=== PATIENT | female | born 1990 | race Caucasian/White ===

== ENCOUNTER 2019-11-10 17:03 | Emergency (ER) | payer OTHER ==
[2019-11-10 17:32] LABS: BASOPHILS % (AUTO) 0.6 %; RED CELL DISTRIBUTION WIDTH 11.9 % (12.0-15.0)
[2019-11-10 17:35] LABS: EOSINOPHILS % (AUTO) 12.3 %; HGB - HEMOGLOBIN 12.6 g/dL (12.0-16.0); LYMPHOCYTES % (AUTO) 27.3 %; MEAN CORPUSCULAR HEMOGLOBIN 30.6 pg (27.0-31.0); MEAN CORPUSCULAR HGB CONC 35.4 g/dL (32.0-36.0); MEAN CORPUSCULAR VOLUME 86.4 fL (81.0-99.0); MEAN PLATELET VOLUME 9.6 fL (7.9-10.8); MONOCYTES % (AUTO) 8.4 %; NEUTROPHILS % (AUTO) 51.1 %; PLT - PLATELET COUNT 295 10^3/uL (130-450); RED BLOOD COUNT 4.12 10^6/uL (4.20-5.40); WHITE BLOOD COUNT 9.5 x10^3/uL (4.8-10.8)
[2019-11-10 17:39] LABS: ABNORMAL LYMPHS % (MANUAL) 0 %; BAND NEUTROPHILS % (MANUAL) 0 %
--- NOTE | 2019-11-10 17:44 | ED Physician Documentation ---
History of Present Illness - Stated complaint Stated Complaint: ABD PX/PREG - Chief complaint Chief Complaint: Abd Pain - History obtained from History obtained from: Patient - History of Present Illness Timing: Today Pain level max: 5 Pain level now: 0 - Additonal information Additional information: 28-year-old female, 1 para 0 estimates that she is approximately 8 weeks . She states today while at work she developed right lower quadrant/right pelvic pain. This is been intermittent. She states that it became more severe so she came to get evaluated. No vaginal bleeding or discharge. Nothing makes it better or worse. Currently does not have any pain. Review of Systems Constitutional: denies: Fever, Chills Cardiac: denies: Chest pain / pressure Respiratory: denies: Cough GI: denies: Vomiting, Diarrhea : denies: Dysuria, Frequency, Hesitancy, Discharge, Vaginal bleeding Skin: denies: Rash Musculoskeletal: denies: Neck pain, Back pain Neurologic: denies: Headache PD PAST MEDICAL HISTORY - Past Medical History Past Medical History: No - Past Surgical History Past Surgical History: No - Present Medications Home Medications: Ambulatory Orders Medication Instructions Recorded Confirmed Albuterol Sulfate [Albuterol 8.5 gm 11/10/19 Sulfate Hfa] Cephalexin [Keflex] 500 mg PO Q6H #12 capsule 11/10/19 Fluticasone [Flonase] 1 sprays DEVIN DAILY 11/10/19 11/10/19 Fluticasone/Salmeterol [Advair 1 each 11/10/19 100-50 Diskus] Loratadine [Claritin] 10 mg PO 11/10/19 - Allergies Allergies/Adverse Reactions: Allergies Allergy/AdvReac Type Severity Reaction Status Date / Time No Known Drug Allergies Allergy Verified 11/10/19 17:09 - Social History Does the pt smoke?: No Smoking Status: Never smoker Does the pt drink ETOH?: No Does the pt have substance abuse?: No - Immunizations Immunizations are current?: Yes PD ED PE NORMAL - Vitals Vital signs reviewed: Yes - General General: Alert and oriented X 3, No acute distress, Well developed/nourished - HEENT HEENT: Moist mucous membranes - Neck Neck: Supple, no meningeal sign - Cardiac Cardiac: RRR, Strong equal pulses - Respiratory Respiratory: No respiratory distress, Clear bilaterally - Abdomen Abdomen: Soft, Non tender, Non distended - Female Female : Pt declined - Back Back: No CVA TTP, No spinal TTP - Derm Derm: Warm and dry - Extremities Extremities: No edema - Neuro Neuro: Alert and oriented X 3 - Psych Psych: Normal mood, Normal affect Results - Vitals Vitals: Vital Signs - 24 hr 11/10/19 11/10/19 11/10/19 17:05 17:09 19:09 Temperature 36.8 C 36.8 C Heart Rate 86 82 80 Respiratory 18 16 16 Rate Blood Pressure 112/77 115/75 122/65 O2 Saturation 99 99 99 11/10/19 11/10/19 19:44 19:45 Temperature 36.6 C Heart Rate 74 65 Respiratory 20 16 Rate Blood Pressure 116/73 115/74 O2 Saturation 99 100 Oxygen O2 Source Room air - Labs Labs: Laboratory Tests 11/10/19 11/10/19 11/10/19 17:25 17:25 17:25 WBC 9.5 RBC 4.12 L Hgb 12.6 Hct 35.6 L MCV 86.4 MCH 30.6 MCHC 35.4 RDW 11.9 L Plt Count 295 MPV 9.6 Neut # (Auto) Not Reportable Lymph # (Auto) Not Reportable Greene # (Auto) Not Reportable Eos # (Auto) Not Reportable Baso # (Auto) Not Reportable Absolute Nucleated RBC Not Reportable Total Counted 100 Band Neuts % (Manual) 0 Abnorm Lymph % (Manual) 0 Nucleated RBC % Not Reportable Neutrophils # (Manual) 4.9 Lymphocytes # (Manual) 3.1 Monocytes # (Manual) 0.5 Eosinophils # (Manual) 1.0 H Basophils # (Manual) 0.0 Differential Comment MANUAL DIFFERENTIAL Platelet Estimate NORMAL (130-450,000) Platelet Morphology NORMAL APPEARANCE RBC Morph Micro Appear NORMAL APPEARANCE Sodium 134 L Potassium 3.5 Chloride 100 L Carbon Dioxide 24 Anion Gap 10.0 BUN 8 Creatinine 0.5 Estimated GFR (MDRD) 146 Glucose 90 Calcium 9.1 Total Bilirubin 0.8 AST 19 ALT 16 Alkaline Phosphatase 52 Total Protein 7.9 Albumin 4.8 Globulin 3.1 Albumin/Globulin Ratio 1.5 Lipase 29 HCG, Quant 880317.00 Urine Color Urine Clarity Urine pH Ur Specific [place] Urine Protein Urine Glucose (UA) Urine Ketones Urine Occult Blood Urine Nitrite Urine Bilirubin Urine Urobilinogen Ur Leukocyte Esterase Urine RBC Urine WBC Ur Squamous Epith Cells Urine Bacteria Ur Microscopic Review Urine Culture Comments 11/10/19 17:41 WBC RBC Hgb Hct MCV MCH MCHC RDW Plt Count MPV Neut # (Auto) Lymph # (Auto) Greene # (Auto) Eos # (Auto) Baso # (Auto) Absolute Nucleated RBC Total Counted Band Neuts % (Manual) Abnorm Lymph % (Manual) Nucleated RBC % Neutrophils # (Manual) Lymphocytes # (Manual) Monocytes # (Manual) Eosinophils # (Manual) Basophils # (Manual) Differential Comment Platelet Estimate Platelet Morphology RBC Morph Micro Appear Sodium Potassium Chloride Carbon Dioxide Anion Gap BUN Creatinine Estimated GFR (MDRD) Glucose Calcium Total Bilirubin AST ALT Alkaline Phosphatase Total Protein Albumin Globulin Albumin/Globulin Ratio Lipase HCG, Quant Urine Color YELLOW Urine Clarity CLEAR Urine pH 7.5 Ur Specific [place] 1.015 Urine Protein NEGATIVE Urine Glucose (UA) NEGATIVE Urine Ketones TRACE Urine Occult Blood NEGATIVE Urine Nitrite NEGATIVE Urine Bilirubin NEGATIVE Urine Urobilinogen 2 H Ur Leukocyte Esterase SMALL H Urine RBC 0-5 Urine WBC 4-5 Ur Squamous Epith Cells MOD Squamous H Urine Bacteria Few Ur Microscopic Review INDICATED Urine Culture Comments NOT INDICATED - Rads (name of study) Pelvic ultrasound Radiology: Prelim report reviewed, EMP read contemporaneously, See rad report (IUP, estimated gestational age of 7 weeks and 2 days. Left paraovarian cyst) PD MEDICAL DECISION MAKING - ED course Complexity details: reviewed results, re-evaluated patient, considered differential, d/w patient ED course: Patient with an intrauterine . No evidence of ectopic. Possible UTI will place on antibiotics for this. Asymptomatic here. No evidence of torsion. Patient is well-appearing, nontoxic. Afebrile. No evidence of appendicitis. Patient counseled regarding signs and symptoms for which I believe and urgent re-evaluation would be necessary. Patient with good understanding of and agreement to plan and is comfortable going home at this time This document was made in part using voice recognition software. While efforts are made to proofread this document, sound alike and grammatical errors may occur. Departure - Departure Disposition: 01 Home, Self Care Clinical Impression: Abdominal pain affecting UTI (urinary tract infection) Qualifiers: Urinary tract infection type: acute cystitis Hematuria presence: without hematuria Qualified Code(s): N30.00 - Acute cystitis without hematuria Condition: Good Instructions: ED UTI Cystitis Female, ED Preg Established Normal Sxs Follow-Up: Rick Mares ARNP [Primary Care Provider] - Within 1 week Prescriptions: Cephalexin [Keflex] 500 mg PO Q6H #12 capsule Comments: Take all antibiotics until gone. Return if you worsen. You appear to be approximately 7 weeks and 2 days along, your estimated date of delivery is 06/26/2020. Discharge Date/Time: 11/10/19 19:46
[2019-11-10 17:46] LABS: ALBUMIN 4.8 g/dL (3.2-5.5); ALBUMIN/GLOBULIN RATIO 1.5 (1.0-2.2); BILIRUBIN,TOTAL 0.8 mg/dL (0.2-1.0); CALCIUM 9.1 mg/dL (8.5-10.3); CREATININE 0.5 mg/dL (0.4-1.0); TOTAL PROTEIN 7.9 g/dL (6.7-8.2)
[2019-11-10 18:03] LABS: LYMPHOCYTES # (MANUAL) 3.1 10^3/uL (1.5-3.5); LYMPHOCYTES % (MANUAL) 33 %; MONOCYTES # (MANUAL) 0.5 10^3/uL (0.0-1.0)
[2019-11-10 18:04] LABS: DIFFERENTIAL COMMENT MANUAL DIFFERENTIAL; PLATELET ESTIMATE, MANUAL NORMAL (130-450,000) (NORMAL); PLATELET MORPHOLOGY NORMAL APPEARANCE (NORMAL); RBC MORPHOLOGY (MULTIPLE) NORMAL APPEARANCE (NORMAL)
[2019-11-10 18:21] LABS: BILIRUBIN,URINE NEGATIVE (NEGATIVE); CLARITY,URINE CLEAR (CLEAR); GLUCOSE, URINE (UA) NEGATIVE (NEGATIVE); KETONES,URINE (UA) TRACE mg/dL (NEGATIVE); LEUKOCYTE ESTERASE, URINE SMALL (NEGATIVE); NITRITE,URINE NEGATIVE (NEGATIVE); OCCULT BLOOD,URINE NEGATIVE (NEGATIVE); PH,URINE 7.5 PH (5.0-7.5); PROTEIN,URINE NEGATIVE (NEGATIVE); UROBILINOGEN,URINE 2 E.U./dL (NORMAL)
[2019-11-10 18:36] LABS: BACTERIA,URINE Few /HPF (None Seen); RBC,URINE 0-5 /HPF (0-5); SQUAMOUS EPITHELIAL CELL,UR MOD Squamous (<= Few)
--- NOTE | 2019-11-10 19:31 | Ultrasound Report ---
Reason: R pelvic pain, 8 weeks EGA Procedure Date: 11/10/2019 Accession Number: [id number] / [id number] Procedure: US - OB First Trimester CPT Code: Final Report FULL RESULT: EXAM: FIRST TRIMESTER OBSTETRIC ULTRASOUND (Less than 11 weeks) EXAM DATE: 11/10/2019 07:09 PM. CLINICAL HISTORY: R pelvic pain, 8 weeks EGA. LMP: Unknown. COMPARISONS: None. TECHNIQUE: Transabdominal and transvaginal ultrasound examination with static image documentation. Single intrauterine gestational sac noted. ASSESSMENT: Gestational Sac: Single intrauterine. Mean gestational sac diameter: 27.5 mm = 7 weeks 6 days. Embryo: CRL (crown-rump length) 11 mm = 7 weeks 2 days. Cardiac activity: 155 beats per minute. Yolk sac: 4.7 mm. Amniotic fluid: Not accurately assessed at this gestational age. Early placenta: Not visible at this gestational age. Other: No perigestational fluid collection demonstrated. MATERNAL STRUCTURES: Uterus: Anteverted. Cervix: Closed. Right Ovary/Adnexa: The ovary measures 3.4 x 1.7 x 2.4 cm, volume 4.4 cc. Unremarkable. Left Ovary/Adnexa: The ovary measures 3.5 x 1.2 x 2 cm, volume 4.4 cc. There is anechoic cystic lesion in left adnexa measuring 1.9 x 1.3 x 1.7 cm, most consistent with a left parovarian cyst. Free Fluid: Small. Other: None. IMPRESSION: 1. Single viable intrauterine at EGA 7 weeks weeks/2 days with FELIBERTO 12 18 20 based on crown-rump length. 2. Assigned dating is FELIBERTO 12 18 20 based on reported current US. 3. A 1.9 x 1.3 x 1.7 cm left parovarian cyst with a small free fluid. RADIA
[2019-11-10 19:46] VITALS: BP 115/74
== END 2019-11-10 19:46 | disposition home or self-care (01) ==
LOC: ED 17:03
DX: O23.11 Infections of bladder in pregnancy, first trimester (principal); O99.89 Other specified diseases and conditions complicating pregnancy, childbirth and the puerperium; R10.9 Unspecified abdominal pain; Z3A.01 Less than 8 weeks gestation of pregnancy
CPT/HCPCS: 36415; 76801; 76817; 80053; 81001; 81003; 83690; 84702; 85025; 87086; 99282; 99284

== ENCOUNTER 2020-02-01 17:13 | Emergency (ER) | payer OTHER ==
[2020-02-01 17:34] VITALS: BP 107/64
--- NOTE | 2020-02-01 18:32 | ED Physician Documentation ---
PD HPI HEENT - Stated complaint Stated Complaint: SINUS/19WKS PREG - Chief complaint Chief Complaint: Heent - History obtained from History obtained from: Patient (2 weeks of sinus pain especially on the right radiating to the ear and upper teeth. No fevers. She is on chronic loratadine and inhaled fluticasone which have not been helpful. No fevers.) Review of Systems Constitutional: denies: Fever, Chills Ears: reports: Ear pain Nose: reports: Rhinorrhea / runny nose, Congestion, Sinus pressure / pain Throat: denies: Sore throat PD PAST MEDICAL HISTORY - Past Medical History Past Medical History: No - Past Surgical History Past Surgical History: No - Present Medications Home Medications: Ambulatory Orders Medication Instructions Recorded Confirmed Albuterol Sulfate [Albuterol 8.5 gm 11/10/19 Sulfate Hfa] Fluticasone [Flonase] 1 sprays DEVIN DAILY 11/10/19 11/10/19 Fluticasone/Salmeterol [Advair 1 each 11/10/19 100-50 Diskus] Loratadine [Claritin] 10 mg PO 11/10/19 Amoxicillin 500 mg PO TID #30 capsule 02/01/20 - Allergies Allergies/Adverse Reactions: Allergies Allergy/AdvReac Type Severity Reaction Status Date / Time No Known Drug Allergies Allergy Verified 02/01/20 17:34 - Social History Does the pt smoke?: No Smoking Status: Never smoker Does the pt drink ETOH?: No Does the pt have substance abuse?: No - Immunizations Immunizations are current?: Yes PD ED PE NORMAL - Vitals Vital signs reviewed: Yes - General General: Alert and oriented X 3, No acute distress - HEENT HEENT: PERRL, EOMI, Ears normal, Pharynx benign - Neck Neck: Supple, no meningeal sign, No bony TTP - Neuro Neuro: Alert and oriented X 3, Normal speech Results - Vitals Vitals: Vital Signs - 24 hr 02/01/20 17:29 Temperature 36.5 C Heart Rate 85 Respiratory 18 Rate Blood Pressure 107/64 O2 Saturation 98 Oxygen O2 Source Room air PD MEDICAL DECISION MAKING - ED course ED course: 29-year-old with sinusitis, the time course would suggest a trial of antibiotics since she is already failed conservative measures with inhaled steroids and an tihistamines. Departure - Departure Disposition: 01 Home, Self Care Clinical Impression: Sinusitis Qualifiers: Sinusitis location: maxillary Chronicity: acute Recurrence: non-recurrent Qualified Code(s): J01.00 - Acute maxillary sinusitis, unspecified Condition: Good Record reviewed to determine appropriate education?: Yes Instructions: ED Sinusitis Abx Tx Prescriptions: Amoxicillin 500 mg PO TID #30 capsule Comments: Call your doctor to arrange a follow-up appointment, make the next available appointment. In the interim, return anytime if worse or if new symptoms develop.
== END 2020-02-01 18:34 | disposition home or self-care (01) ==
LOC: ED 17:13
DX: O98.812 Other maternal infectious and parasitic diseases complicating pregnancy, second trimester (principal); J01.00 Acute maxillary sinusitis, unspecified; Z3A.19 19 weeks gestation of pregnancy
CPT/HCPCS: 99282

== ENCOUNTER 2020-03-13 15:31 | Outpatient (CLI) | payer OTHER ==
[2020-03-13 15:59] VITALS: BP 110/68
[2020-03-13 16:07] LABS: BILIRUBIN,URINE NEGATIVE (NEGATIVE); GLUCOSE, URINE (UA) NEGATIVE (NEGATIVE); KETONES,URINE (UA) NEGATIVE (NEGATIVE); LEUKOCYTE ESTERASE, URINE NEGATIVE (NEGATIVE); NITRITE,URINE NEGATIVE (NEGATIVE); OCCULT BLOOD,URINE NEGATIVE (NEGATIVE); PROTEIN,URINE NEGATIVE (NEGATIVE); UROBILINOGEN,URINE 1 (NORMAL) E.U./dL (NORMAL)
[2020-03-13 16:09] LABS: CLARITY,URINE CLEAR (CLEAR)
[2020-03-13 16:19] LABS: BACTERIA,URINE None Seen /HPF (None Seen); RBC,URINE None Seen /HPF (0-5); SQUAMOUS EPITHELIAL CELL,UR MOD Squamous (<= Few)
--- NOTE | 2020-03-13 17:13 | PROCEDURE REPORT ---
- HPI Diagnosis/Indication for NST: labor Current [facility] 06/26/20 Gestation 25 Weeks and 0 Days 1 Para 0 Vital Signs Temperature 36.9 C 03/13/20 15:56 Heart Rate 87 03/13/20 15:56 Respiratory Rate 18 03/13/20 15:56 Blood Pressure 110/68 03/13/20 15:56 O2 Saturation 99 03/13/20 15:56 Temperature 36.9 C 03/13/20 15:56 Heart Rate 87 03/13/20 15:56 Respiratory Rate 18 03/13/20 15:56 Blood Pressure 110/68 03/13/20 15:56 O2 Saturation 99 03/13/20 15:56 - Results and Plan Plan: S: This 32yo at 25.0 wks gestation presents to triage today after telephoning clinic due to complaints of back pain and nausea onset yesterday after lunch at work. She then went home early to rest and it mostly resolved. However, upon waking this morning, she reports experiencing 8/10 full back pain, some abdominal cramping, and severe nausea which prompted her to come in. Currently she does not have abdominal discomfort. Reports she feels mild tightening intermittently in her uterus. Nausea is mild. She reports low back aching that is steady and about a 4/10. Denies burning with urination, urgency, or abnormal frequency. Denies FOURNIER, VB, LOF, and reports good movement. Does report ongoing environmental allergy discomforts. O: FHTs 155 with moderate variability, No decels. Utx: uterus soft to palpation, continues to be soft when uterine activity noted on monitor. Non tender. FFN collected UA collected ROS neg except noted in HPI Physical exam otherwise negative A: heart tones-reactive and reassuring Uterine activity- mild and intermittent FFN negative UA negative Generalized discomforts vs. digestive upset, but does not appear to be in labor or with an infection P: Discharge to home with labor precautions Educated to warning signs of labor, abnormal nausea/vomiting/diarrhea Encouraged to increase fluid intake, make take a magnesium supplement Rx for Zofran sent to pt's preferred pharmacy
== END 2020-03-13 17:07 | disposition home or self-care (01) ==
LOC: WFO 15:31 → FBP 15:33 → WFO 17:07
PROVIDERS: ATTEND Advanced Practice Midwife
DX: O99.89 Other specified diseases and conditions complicating pregnancy, childbirth and the puerperium (principal); Z3A.25 25 weeks gestation of pregnancy; M54.5 Low back pain; R10.9 Unspecified abdominal pain; R11.0 Nausea
CPT/HCPCS: 81001; 82731; 87086; 99214

== ENCOUNTER 2020-04-02 04:30 | Outpatient (CLI) | payer OTHER ==
[2020-04-02] MEDS ORDERED: SODIUM CHLORIDE FLUSH 0.9% 10 ML SYRINGE IVP PRN (04:38)
[2020-04-02] MEDS ORDERED: BETAMETHASONE 30 MG/5 ML VIAL IM ONE (04:38)
[2020-04-02] MEDS ORDERED: LACTATED RINGERS 1,000 ML IV SCH (04:45)
[2020-04-02] MEDS ORDERED: BETAMETHASONE 30 MG/5 ML VIAL ONE (04:47)
[2020-04-02] MEDS ORDERED: AMPICILLIN 2 GM VIAL IV ONE (04:48)
[2020-04-02] MEDS ORDERED: MAGNESIUM SULFATE IN WATER 20 GM/500 ML IV.SOLN IV ONE (04:50)
[2020-04-02] MEDS ORDERED: LACTATED RINGERS 1,000 ML IV ONE (04:53)
[2020-04-02] MEDS: MAGNESIUM SULFATE 2 GRAM 2 GM/50 ML BAG IV SCH ×3 (04:53→05:12)
[2020-04-02 04:56] LABS: RUPTURE OF MEMBRANES PLUS POSITIVE (NEGATIVE)
[2020-04-02] MEDS ORDERED: MAGNESIUM SULFATE 2 GRAM 6 GM/150 ML BAG IV ONE (04:57)
[2020-04-02] MEDS ORDERED: AMPICILLIN 2 GM in SODIUM CHLORIDE 0.9% MINIBAG 100 ML IV SCH (05:00)
[2020-04-02 05:08] LABS: BASOPHILS % (AUTO) 0.5 %; EOSINOPHILS % (AUTO) 6.5 %; HGB - HEMOGLOBIN 12.8 g/dL (12.0-16.0); LYMPHOCYTES % (AUTO) 19.5 %; MEAN CORPUSCULAR HEMOGLOBIN 32.4 pg (27.0-31.0); MEAN CORPUSCULAR HGB CONC 35.4 g/dL (32.0-36.0); MEAN CORPUSCULAR VOLUME 91.6 fL (81.0-99.0); MEAN PLATELET VOLUME 10.9 fL (7.9-10.8); NEUTROPHILS % (AUTO) 65.4 %; PLT - PLATELET COUNT 263 10^3/uL (130-450); RED BLOOD COUNT 3.95 10^6/uL (4.20-5.40); RED CELL DISTRIBUTION WIDTH 12.9 % (12.0-15.0); WHITE BLOOD COUNT 16.8 x10^3/uL (4.8-10.8)
[2020-04-02 05:15] LABS: ABNORMAL LYMPHS % (MANUAL) 0 %; BAND NEUTROPHILS % (MANUAL) 0 %
[2020-04-02] MEDS ORDERED: ONDANSETRON 4 MG/2 ML VIAL ONE (05:17)
[2020-04-02] MEDS ORDERED: ePHEDrine 50 MG/ML VIAL IVP ONE (05:20)
--- NOTE | 2020-04-02 05:38 | HISTORY & PHYSICAL EXAMINATION ---
Admit History - Visit Reason Visit Reason: Membranes rupture - : 1 Parity: 0 Care: positive: Suzi Risk/History: positive: None Complications This : positive: None Smoking Status: Never smoker - Mother's Labs Mother's Blood Type: positive: O Mother's RH: positive: Positive GBS: positive: Other (pending) Rubella Status: positive: Immune - Other Maternal History Other Maternal History: Patient is a 37-year-old G1, P0 at 27+6 weeks estimated gestational age here with gross rupture of membranes Patient reports that she was woken from sleep with passage of large volume of fluid per vagina. She continues to have passage of fluid. No contractions. No vaginal bleeding. Endorses movement. No instigating events. No fever/chills/nausea/vomiting. has been uncomplicated to date. Dating is by 7-week ultrasound not consistent with LMP. Patient is Rh+/rubella immune. GBS is pending. anatomy ultrasound showed a three-vessel cord, anterior placenta and estimated weight of 87th percentile. LMP 09/11/2019-->FELIBERTO 06/17/2020 US on 11/28/19 @ 10 gives FELIBERTO 06/25/2020 PNL: O pos/Ab neg/Rub imm/HepsAg neg/VZV imm/HIV RN/RPR NR/UCx wnl/HCT 34. 5/Plts 247 GCCT neg CF carrier neg/ AFP Tetra wnl FAS 02/11/2020 : 3VC, anterior placenta, CL 4.9 cm, 87%ile, FAS wnl TDaP complete PMH: Anxiety Asthma- Advair/ProAir HFA Chronic sinusitis PSH: none OB HX: No abnl pap smears No STIs. 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 [employer]; currently [place] Originally from [place] [employer] in Registration No RGACE Safe at home FH: Father with Renal failure, COPD, HTN Mother: HTN ALL: Peanuts (tolerates peanut butter) MEDS: Flonase Loratidine Advair ProAir HFA PNV Doxylamine succinate (Unisom) Meds/Allgy - Home Medications Home Medications: Ambulatory Orders Medication Instructions Recorded Confirmed Albuterol Sulfate [Albuterol 8.5 gm IH 11/10/19 Sulfate Hfa] Fluticasone [Flonase] 1 sprays DEVIN DAILY 11/10/19 11/10/19 Fluticasone/Salmeterol [Advair 1 each 11/10/19 100-50 Diskus] Loratadine [Claritin] 10 mg PO 11/10/19 Amoxicillin 500 mg PO TID #30 capsule 02/01/20 - Allergies Allergies/Adverse Reactions: Allergies Allergy/AdvReac Type Severity Reaction Status Date / Time No Known Drug Allergies Allergy Verified 02/01/20 17:34 Review of Systems - Other Findings Other Findings: As per HPI, otherwise remaining systems are negative Physical - Abdominal Exam Vital Signs: Temp Pulse Resp BP Pulse Ox 98.2 F 90 18 116/76 98 04/02/20 04:50 04/02/20 04:50 04/02/20 04:50 04/02/20 04:50 04/02/20 04:50 Contraction Frequency (min/apart): rare - Monitoring Heart Rate Baseline: 145 mod ryann 15x15 accels no decels Strip Review: positive: Category I - Presentation Presentation: positive: Breech - Vaginal Exam Membranes: positive: Membranes ruptured Dilation (in cm): closed Effacement (%): 40% Station: positive: -2 Cervical Position: positive: Midposition - Speculum Exam Speculum Exam Performed: positive: Yes Findings: positive: Gross leak, Nitrazine, Other (Gross rupture of membranes, amniotic fluid filling vaginal vault, ferning positive, ROM+ pending) - Other Notes Labor Progress Note/Additional Text: Formal US was performed. Prelim read showed closed Cervical length 3.1 cm, non-inclusive of narrow funnelling. No change with valsalva Za breech presentation BRITTANI 4.8 EFW 1262g, 68.9%ile GEN: NAD, hypotensive with magnesium bolus, placed in mild trendelenburg with resolution of low BP and associated nausea HEENT: NCAT CV: RR RESP: normal effort ABD: gravid,S&NT PELVIC; NEFG with gross rupture. Nl BSUMA, vagina rugated and well estrogenized without lesions. Amniotic fluid pooling in vaginal vault. Cervix is visually closed, no lesions or bleeding. SVE: Closed, 40%/firm/mid/ high. Non-tender EXT: WWP, no LE edema PSYCH: Appropriate affect NEURO A&O EFM: CAT I tracing, (by term standards) TOCO: rare Plan for Labor - Plan For Labor I expect patient to be DC'd or transferred within 96 hours.: Yes Plan for Labor: 29 yo AT 27+6 WGA with gross rupture of membranes PPROM: Confirmed with pooling and unequivocal ferning (ETA: ROM+ positive) -BRITTANI 4.8, breech, CL 3.1 cm FWB: BREECH, za -GBS unknown -EFW 1262, 68.9%ile -Magnesium 6 g bolus given to be followed with 3g/hr infusion for neuro ppx -BMZ 12 mg IM x1 given at 4:47 am on 04/02/2020 -Ampicillin 2g IV x1 for GBS ppx -Cat I tracing PENDING LABS: -GBS cultures -GCCT -UCx deferred given need for catheterization. Not needed per receiving provider Transfer to [facility] for NICU support Transfer accepted by Dr. Art Carcamo Consents for transfer signed. Transport via [facility]
[2020-04-02] MEDS ORDERED: MAGNESIUM SULFATE IN WATER 20 GM/500 ML IV.SOLN IV SCH (06:00)
[2020-04-02 06:03] LABS: BASOPHILS # (MANUAL) 0.2 10^3/uL (0-0.1); BASOPHILS % (MANUAL) 1 %; DIFFERENTIAL COMMENT MANUAL DIFFERENTIAL; EOSINOPHILS # (MANUAL) 2.2 10^3/uL (0-0.7); LYMPHOCYTES % (MANUAL) 30 %; MONOCYTES # (MANUAL) 0.7 10^3/uL (0.0-1.0); PLATELET ESTIMATE, MANUAL NORMAL (130-450,000) (NORMAL); RBC MORPHOLOGY (MULTIPLE) NORMAL APPEARANCE (NORMAL)
[2020-04-02 07:28] VITALS: BP 106/76
--- NOTE | 2020-04-02 08:56 | Ultrasound Report ---
PROCEDURE: OB F/U or Repeat INDICATIONS: Leaking Amniotic fluid TECHNIQUE: Real-time scanning was performed of the fetus, with image documentation and biometric measurements. Endovaginal scanning: Performed COMPARISON: None. FINDINGS: Estimated gestational age by today's ultrasound: 29 weeks 1 day. Estimated date of delivery by today's ultrasound 06/26/2020. General: A single living intrauterine gestation is present. Presentation: Breech Placenta: Placental position is anterior, without previa. Amniotic fluid index: 4.8 cm which is low for gestational age. heart rate: beats per minute. Maternal cervical canal: 3.1 cm in length with T-shaped cervical dilatation. There is diastasis of b oth the internal and external cervical os. biometrics: Biparietal diameter: 29 weeks 6 days Head circumference: 29 weeks 6 days Abdominal circumference: 28 weeks 0 days Femur length: 29 weeks 0 days Estimated gestational age from initial scan: not applicable. Composite gestational age from present scan: 29 weeks 1 day Estimated weight and percentile: 1262 g Measurement variability in biometric dating: +/- 10 days from 12-20 weeks gestation, +/- 2 weeks from 20-30 weeks gestation, +/- 3 weeks at 30 weeks gestation or more. Other: Very limited movement identified. Most of the anatomy is not well visualized. IMPRESSION: Single living intrauterine gestation in breech position with estimated gestational age of 29 weeks 1 day. Oligohydramnios with T-shaped cervical dilatation and diastasis of both the internal and external cer vical os. Constellation of findings is consistent with premature rupture of membranes. No significant change from preliminary report. Reviewed by: Omega Aguirre MD on 04/02/2020 8:55 AM PDT Approved by: Omega Aguirre MD on 04/02/2020 8:55 AM PDT Station ID: [id number]
--- NOTE | 2020-04-02 08:58 | Ultrasound Report ---
PROCEDURE: OB F/U or Repeat INDICATIONS: Leaking amniotic fluid. TECHNIQUE: Real-time scanning of the fetus was performed with both transvaginal and transabdominal technique. Th e images, findings, and impression are dictated in separate report. COMPARISON: 11/10/2019 FINDINGS/IMPRESSION: Findings consistent with premature entry of membranes. Please see separately dictated report for the transvaginal ultrasound examination. Reviewed by: Omega Aguirre MD on 04/02/2020 8:57 AM PDT Approved by: Omega Aguirre MD on 04/02/2020 8:57 AM PDT Station ID: [id number]
--- NOTE | 2020-04-04 12:33 | PROVIDER PROGRESS NOTE ---
Subjective - Prog Note Date Prog Note Date: 04/02/20 Prog Note Time: 23:00 - Subjective Subjective: Patient is a 37-year-old G1, P0 at 27+6 weeks estimated gestational age here with gross rupture of membranes Proven to have gross rupture. Please see H&P for full details Objective - Vital Signs/Intake & Output Intake & Output: Intake & Output 04/01/20 04/02/20 04/03/20 04/04/20 23:59 23:59 23:59 23:59 Intake Total 375 Balance 375 - Objective General Appearance: positive: No acute distress Respiratory: positive: No respiratory distress, Breath sounds nml Cardiovascular: positive: Regular rate & rhythm Abdomen: positive: Non-tender Extremities: positive: Non-tender Neurologic/Psychiatric: positive: Oriented x3 - Lab Results Fish Bones: 04/02/20 04:40 Other Labs: Lab Results x24hrs 04/02/20 04/02/20 Range/Units 04:55 04:40 Group B Strep (PCR) NEGATIVE (NEGATIVE) Ref Lab Test Result REPORT - Other Results/Comments Other Results/Comments: Gross rupture with positive pooling, positive ferning, ROM+ Cervix closed/long/high Assessment/Plan - Problem List (1) premature rupture of membranes Impression: 29 yo at 27+6 wga with PPROM Transferred to [facility] Art Carcamo acceptng physician Please see H&P for full details.
== END 2020-04-02 06:15 | disposition short-term general hospital (02) ==
LOC: WFO 04:30 → FBP 04:31 → WFO 06:15
PROVIDERS: ATTEND Obstetrics & Gynecology
DX: O42.912 Preterm premature rupture of membranes, unspecified as to length of time between rupture and onset of labor, second trimester (principal); Z3A.27 27 weeks gestation of pregnancy; I95.2 Hypotension due to drugs; R11.0 Nausea; T47.4X5A Adverse effect of other laxatives, initial encounter
CPT/HCPCS: 76816; 76817; 81599; 84112; 85025; 86850; 86900; 86901; 87797; 96365; 96366; 96367; 96372; 99215; J7120; 87491; 87591; 87661

== ENCOUNTER 2020-04-02 07:04 | Outpatient (CLI) | payer OTHER | END 2020-04-02 07:05 | disposition EMS.NT | LOC: EMS 07:04 | PROVIDERS: ATTEND Surgery | DX: Z03.89 Encounter for observation for other suspected diseases and conditions ruled out (principal) ==